=== PATIENT | female | born 1975 | race Caucasian/White ===

== ENCOUNTER 2017-12-07 04:31 | Inpatient (IN) | payer MEDICAID ==
[2017-12-07 07:21] LABS: ADD MAN DIFF? NO
[2017-12-07 07:26] LABS: BASOPHILS % 0.4 % (0.0-2.0); EOSINOPHILS # 0.3 10^3/ul (0.0-0.5); EOSINOPHILS % 3.1 % (0.0-7.0); HEMATOCRIT 33.2 % (37.0-47.0); HEMOGLOBIN 11.1 g/dl (12.0-16.0); LYMPHOCYTES # 1.5 10^3/ul (0.8-2.9); LYMPHOCYTES % 15.2 % (15.0-51.0); MEAN CORPUSCULAR HEMOGLOBIN 29.5 pg (29.0-33.0); MEAN CORPUSCULAR HGB CONC 33.4 g/dl (32.0-37.0); MEAN CORPUSCULAR VOLUME 88.3 fl (82.0-101.0); MEAN PLATELET VOLUME 10.7 fl (7.4-10.4); MONOCYTE # 0.7 10^3/ul (0.3-0.9); MONOCYTES % 6.8 % (0.0-11.0); NEUTROPHIL # 7.5 10^3/ul (1.6-7.5); NEUTROPHILS % 74.1 % (39.0-77.0); PLATELET COUNT 208 10^3/UL (140-415); RED BLOOD COUNT 3.76 10^6/ul (4.20-5.40); RED CELL DISTRIBUTION WIDTH 13.2 % (11.5-14.5)
[2017-12-07 07:26] LABS: WHITE BLOOD COUNT 10.1 10^3/ul (4.8-10.8)
[2017-12-07] MEDS ORDERED: CARBOPROST 250 MCG INJ IM ×2 (09:30→22:00)
[2017-12-07] MEDS ORDERED: BUTORPHANOL 1 MG INJ IV (09:30)
[2017-12-07] MEDS ORDERED: LIDOCAINE 1% (MPF) 30 ML INJ INJ (09:30)
[2017-12-07] MEDS ORDERED: METHYLERGONOVINE 0.2 MG INJ IM ×2 (09:30→22:00)
[2017-12-07] MEDS ORDERED: OXYTOCIN 30 UNITS/LR 500 ML IV ×3 (09:30→22:00)
[2017-12-07] MEDS ORDERED: MISOPROSTOL 200 MCG TAB PR ×2 (09:30→22:00)
[2017-12-07] MEDS: LACTATED RINGER'S 1,000 ML IV* ×3 (09:47→23:10)
[2017-12-07 10:03] LABS: ADD MAN DIFF? NO
[2017-12-07 10:09] LABS: WHITE BLOOD COUNT 8.9 10^3/ul (4.8-10.8)
[2017-12-07 10:09] LABS: BASOPHILS % 0.5 % (0.0-2.0); EOSINOPHILS # 0.2 10^3/ul (0.0-0.5); EOSINOPHILS % 2.5 % (0.0-7.0); HEMATOCRIT 32.1 % (37.0-47.0); HEMOGLOBIN 11.1 g/dl (12.0-16.0); LYMPHOCYTES # 1.6 10^3/ul (0.8-2.9); LYMPHOCYTES % 17.9 % (15.0-51.0); MEAN CORPUSCULAR HEMOGLOBIN 30.4 pg (29.0-33.0); MEAN CORPUSCULAR HGB CONC 34.6 g/dl (32.0-37.0); MEAN CORPUSCULAR VOLUME 87.9 fl (82.0-101.0); MEAN PLATELET VOLUME 10.4 fl (7.4-10.4); MONOCYTE # 0.5 10^3/ul (0.3-0.9); MONOCYTES % 5.7 % (0.0-11.0); NEUTROPHIL # 6.5 10^3/ul (1.6-7.5); NEUTROPHILS % 73.1 % (39.0-77.0); PLATELET COUNT 204 10^3/UL (140-415); RED BLOOD COUNT 3.65 10^6/ul (4.20-5.40); RED CELL DISTRIBUTION WIDTH 13.2 % (11.5-14.5)
[2017-12-07 10:29] LABS: INR 1.04; PROTIME 13.7 Sec (11.9-14.9); PT RATIO 1.1
[2017-12-07 10:30] LABS: PARTIAL THROMBOPLASTIN TIME 26.1 Sec (25.0-35.0)
[2017-12-07] MEDS: OXYTOCIN 30 UNITS/LR 500 ML IV ×3 (13:29→23:08)
[2017-12-07] MEDS: MISOPROSTOL 200 MCG TAB PO ×2 (17:11→20:56)
[2017-12-07] MEDS: BUTORPHANOL 2 MG INJ IV (20:08)
[2017-12-07] MEDS ORDERED: CEFAZOLIN 2 GM/50 ML (PMX) 50 ML IVPB (21:29)
[2017-12-07] MEDS: CEFAZOLIN 2 GM/50 ML (PMX) 50 ML IVPB (21:37)
[2017-12-07] MEDS ORDERED: BENZOCAINE 20% 56 ML SPRAY TOP (22:00)
[2017-12-07] MEDS ORDERED: HYDROCODONE/APAP (5/325) TAB PO ×2 (22:00)
[2017-12-07] MEDS ORDERED: DIBUCAINE 1% 30 GM OINT PR (22:00)
[2017-12-07] MEDS: IBUPROFEN 600 MG TAB PO (23:47)
[2017-12-08] MEDS: WITCH HAZEL/GLYCERIN PAD PR (01:26)
[2017-12-08] MEDS: LACTATED RINGER'S 1,000 ML IV* (06:26)
[2017-12-08 06:38] LABS: ADD MAN DIFF? NO
[2017-12-08 06:53] LABS: BASOPHILS % 0.5 % (0.0-2.0); EOSINOPHILS # 0.1 10^3/ul (0.0-0.5); EOSINOPHILS % 1.5 % (0.0-7.0); HEMATOCRIT 31.9 % (37.0-47.0); HEMOGLOBIN 10.6 g/dl (12.0-16.0); LYMPHOCYTES # 1.9 10^3/ul (0.8-2.9); LYMPHOCYTES % 23.5 % (15.0-51.0); MEAN CORPUSCULAR HEMOGLOBIN 30.2 pg (29.0-33.0); MEAN CORPUSCULAR HGB CONC 33.2 g/dl (32.0-37.0); MEAN CORPUSCULAR VOLUME 90.9 fl (82.0-101.0); MEAN PLATELET VOLUME 10.6 fl (7.4-10.4); MONOCYTE # 0.6 10^3/ul (0.3-0.9); NEUTROPHIL # 5.4 10^3/ul (1.6-7.5); NEUTROPHILS % 67.1 % (39.0-77.0); PLATELET COUNT 211 10^3/UL (140-415); RED BLOOD COUNT 3.51 10^6/ul (4.20-5.40); RED CELL DISTRIBUTION WIDTH 13.3 % (11.5-14.5)
[2017-12-08 06:53] LABS: WHITE BLOOD COUNT 8.1 10^3/ul (4.8-10.8)
[2017-12-08] MEDS: IBUPROFEN 600 MG TAB PO (07:06)
[2017-12-08 11:15] LABS: RHOGAM PROFILE 1 1
[2017-12-08 17:33] LABS: RAPID PLASMA REAGIN NONREACTIVE (NR)
[2017-12-09] MEDS ORDERED: DIPHTH/TET/ACEL PERTUSS (ADULT) 0.5 ML VIAL IM* (09:00)
[2017-12-09] MEDS ORDERED: MEASLES,MUMPS,RUBELLA VACCINE INJ SC* (09:00)
[2017-12-09] MEDS ORDERED: VARICELLA VACCINE LIVE/PF 1,350 UNIT/0.5 ML ML SC* (09:00)
== END 2017-12-08 11:40 | disposition home or self-care (01) | DRG 775 ==
LOC: OBT 04:31 → L-D 04:41 → OBT 09:00 → L-D 09:00
PROVIDERS: Obstetrics & Gynecology; Specialist
PROC: 10E0XZZ Delivery of Products of Conception, External Approach (ICD-10-PCS; principal; 2017-12-07)
DX: O42.912 Preterm premature rupture of membranes, unspecified as to length of time between rupture and onset of labor, second trimester (principal); O02.1 Missed abortion; Z3A.19 19 weeks gestation of pregnancy; Z37.1 Single stillbirth
CPT/HCPCS: 76815; 76817; 76856; 85025; 85384; 85610; 85730; 86592; 86850; 86885; 86900; 86901; 86920; 88307